=== PATIENT | female | born 1970 | race Caucasian/White ===

== ENCOUNTER 2016-09-24 22:35 | Emergency (ER) | payer OTHER, BC ==
--- NOTE | 2016-09-28 19:04 | ER ---
ADMIT: 09/24/2016 RM/LOC: ER [facility] MR#: [id number] [address] [facility] [address] [place] [id number] [address] [place] [address] Emergency Room Report SEX: F AGE: 46 : 1970 DATE: 09/24/2016 CHIEF COMPLAINT: Injury to right shoulder. HISTORY OF PRESENT ILLNESS: A 46-year-old female, who presents after sustaining an injury at work. 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 She was helping roll a patient, when the patient rolled back and struck her on the lateral aspect of her right shoulder. States she had instant pain. States she has numbness and tingling distally. She is unable to move the shoulder, has great pain with movement. Denies any neck or back pain, chest pain, shortness of breath, nausea, or vomiting. Does have a past medical history for depression and anxiety and migraines. COURSE IN THE EMERGENCY ROOM: The patient was seen and examined. Afebrile and nontoxic. She is in no acute distress. Shoulder exam shows some tenderness all throughout the lateral anterior and posterior aspects of the right shoulder and no obvious deformity. No swelling or ecchymosis. She does have a limited range of motion secondary to pain. She will not even let me passively move the shoulder secondary to pain. Sensation is intact to light touch. She has good radial pulses compared bilaterally. Skin is warm, dry, and intact. Routine shoulder series shows no acute fractures or dislocations. IMPRESSION: Contusion, right shoulder. DISPOSITION: The patient was given a script for [place] 5/325 one to two tabs p.o. every 4 to 6 hours as needed for pain #20. She is to follow up with Dr. Ma next week to have the shoulder re-evaluated and for possible further imaging and management. She was cautioned not to drive, not to double up on the Tylenol and wasting the narcotic pain medication. To apply ice as needed for pain. Gentle range of motion. She was provided with a note for work excusing her until Tuesday. She continues to have problems. She is to follow up with Dr. Ma for clearance at this time. Questions were sought and answered to the best of my ability and to the patient's satisfaction. Discharged in stable condition. KURTIS Kessler / Amish Nazario MD / mariajose JOB #: [id number] CC: Amish Nazario MD, Attending Physician Landon Ma MD, Family Physician
== END 2016-09-24 23:50 | disposition home or self-care (01) ==
LOC: ER 22:35
DX: S40.011A Contusion of right shoulder, initial encounter (principal); F32.9 Major depressive disorder, single episode, unspecified; F41.9 Anxiety disorder, unspecified; G43.909 Migraine, unspecified, not intractable, without status migrainosus; W22.8XXA Striking against or struck by other objects, initial encounter; Y92.129 Unspecified place in nursing home as the place of occurrence of the external cause; Y99.0 Civilian activity done for income or pay